=== PATIENT | male | born 1965 | race Caucasian/White ===

== ENCOUNTER → 2018-05-11 | Outpatient (CLI) | payer BC, MEDICARE ==
[~2018-05-11] MED LIST: ACET650S7 PR; ALBU8.5H5 INH; ALPR0.25 PO; CARV12.52 PO; CARV25TA12 PO; CARV6.2512 PO; ENOX40SY4 SQ; FOLI-17 PO; FURO10VI37 IV; HYDR-3240 PO; LISI-167 PO; POLY17PO5 PO; POTA20TA14 PO; PRED20TA PO; SILD20TA PO; SULF-169 PO; THIA100T67 PO; TRAM50TA2 PO; amlodipine PO; metoprolol PO
== END | disposition home or self-care (01) ==
LOC: CFH 11:32
PROVIDERS: ATTEND Family Medicine
DX: R05 Cough (principal)
CPT/HCPCS: 71046